=== PATIENT | male | born 2005 | race Two or more races ===

== ENCOUNTER 2025-07-08 02:59 | Emergency (ER) | payer SELFPAY ==
[~2025-07-08] VITALS: Ht 175.3 cm; Wt 81.6 kg
[2025-07-08] MEDS ORDERED: KETOROLAC TROMETHAMINE 15 MG/ML VIAL ONE (04:00)
[2025-07-08] MEDS: KETOROLAC TROMETHAMINE 15 MG/ML VIAL IV ONE (04:01)
[2025-07-08] MEDS ORDERED: IV NS 0.9% 250 ML IV ONE (04:02)
[2025-07-08] MEDS ORDERED: IOHEXOL-350 100 ML VIAL IV ONE (04:02)
[2025-07-08] MEDS ORDERED: CT SWABBABLE VALVE TRANS SET 1 EA INFUS.SET MC ONE (04:02)
[2025-07-08 04:16] LABS: PLATELET COUNT (AUTO) 200 K/uL (150-450); RED BLOOD CELL COUNT(AUTO) 4.70 MIL/uL (4.5-6.0); RED CELL DISTRIBUTION WIDTH 13.5 % (11.5-15.0); WHITE BLOOD COUNT (AUTO) 8.6 K/uL (4.3-11.0)
[2025-07-08 04:27] LABS: INR 1.03 (0.91-1.10)
[2025-07-08 04:28] LABS: CALCIUM, SERUM 8.7 mg/dL (8.5-10.1); CREATININE 0.8 mg/dL (0.6-1.3); SODIUM SERUM 141.0 mmol/L (136-145); UREA NITROGEN, BLOOD 14.0 mg/dL (7-18)
[2025-07-08] MEDS ORDERED: ACET-2030 PO (05:30)
[2025-07-08] MEDS ORDERED: IBUP-1957 PO (05:30)
[2025-07-08 05:37] VITALS: BP 129/76; TEMP 98.6; O2SAT 97
== END 2025-07-08 05:37 | disposition home or self-care (01) ==
LOC: ER 02:59
DX: S30.11XA Contusion of abdominal wall, initial encounter (principal); R07.89 Other chest pain; M25.571 Pain in right ankle and joints of right foot; M25.561 Pain in right knee; R51.9 Headache, unspecified; V49.9XXA Car occupant (driver) (passenger) injured in unspecified traffic accident, initial encounter; Y93.89 Activity, other specified; Y92.410 Unspecified street and highway as the place of occurrence of the external cause; Y99.8 Other external cause status
CPT/HCPCS: 99285; 71260; 96374; 73610; 73564; 70450; 74177; 85025; 80048; 83690; 85610; 36415; 86850; J1885; J7050; Q9967